=== PATIENT | female | born 1990 | race Asian ===

== ENCOUNTER 2024-07-17 16:35 | Emergency (ER) | payer MEDICAID ==
[~2024-07-17] VITALS: Ht 172.7 cm; Wt 72.6 kg
--- NOTE | 2024-07-17 17:15 | NUR ---
BIBS FOR C/O COUGH, CONGESTION AND CONSTIPATION X 14 DAYS. RESPIRATION REGULAR AND UNLABORED.
[2024-07-17] MEDS ORDERED: GUAI180L4 PO (18:10)
[2024-07-17] MEDS ORDERED: LACT10SO58 PO (18:10)
--- NOTE | 2024-07-17 18:22 | NUR ---
COVID AND INFLUENZA SWABS DONE AND SENT TO THE LAB
--- NOTE | 2024-07-17 19:13 | NUR ---
Patient given written and verbal discharge instructions. Patient verbalizes understanding of instructions. Patient is ambulatory with steady gait. Refuses offer of nursing home placement. Patient given list of available shelters in surrounding area.
[2024-07-17 19:14] VITALS: BP 125/75; TEMP 98.8; O2SAT 100
== END 2024-07-17 19:14 | disposition home or self-care (01) ==
LOC: ER 16:43
DX: J06.9 Acute upper respiratory infection, unspecified (principal); K59.00 Constipation, unspecified; Z59.01 Sheltered homelessness; Z20.822 Contact with and (suspected) exposure to COVID-19
CPT/HCPCS: 71045-TC; 98960